=== PATIENT | female | born 1980 ===

== ENCOUNTER 2017-12-14 07:08 | Day surgery (SDC) | payer OTHER ==
[2017-12-14] MEDS ORDERED: NAPROXEN SODIU550 MG PO (12:19)
== END 2017-12-14 15:36 | disposition home or self-care (01) ==
LOC: CIR.AMB 07:08
DX: N84.0 Polyp of corpus uteri (principal)

== ENCOUNTER 2018-11-26 09:32 | Outpatient (CLI) | payer OTHER ==
[~2018-11-26 09:32] MED LIST: NAPROXEN SODIU550 MG PO
== END 2018-11-26 10:39 | disposition home or self-care (01) ==
LOC: NST 09:32
DX: Z34.83 Encounter for supervision of other normal pregnancy, third trimester (principal)